=== PATIENT | male | born 1935 | race Caucasian/White ===

== ENCOUNTER 2016-07-19 12:59 | Emergency (ER) | payer MEDICARE, OTHER ==
[2016-07-19 13:15] VITALS: BP 139/41
--- NOTE | 2016-07-19 13:55 | EDM.PDOC ---
[id number] 4d HOT, SWOLLEN, TENDER SPOT ON LT ELBOW Time Seen by Provider: 07/19/16 13:40 Source: Reports: Patient History Limitations: Reports: No limitations - History of Present Illness INITIAL COMMENTS - FREE TEXT/NARRATIVE: 80-year-old male noticed some fluctuance over his left elbow last evening after working in the yard, this morning he felt ill, weak, feverish, and noticed the left arm was more swollen and warm. He now feels much better and the swelling seems to have gone down some but the area is still warm and red. No trauma. Consciousness: Reports: no loss of consciousness Associated Symptoms: Reports: denies other symptoms Allergies/ADRs: Allergies No Known Allergies Allergy (Verified 07/19/16 13:15) Home Medications: Ambulatory Orders Cod Liver Oil 1 each PO DAILY 12/11/12 [Confirmed 07/19/16] Ergotamine Tartrate/Caffeine [Migergot Suppository] 1 supp RECTAL ASDIRECTED PRN 12/11/12 [Confirmed 07/19/16] [place]-3 Fatty Acids [Fish Oil] 1,000 mg PO DAILY 12/11/12 [Confirmed 07/19/16] Ranitidine [Zantac] 75 mg PO BID PRN 12/11/12 [Confirmed 07/19/16] SUMAtriptan [Imitrex] 25 mg PO ASDIRECTED PRN 12/11/12 [Confirmed 07/19/16] ZOLMitriptan [Zomig] 1.25 mg PO DAILY 12/11/12 [Confirmed 07/19/16] Calcium Carbonate/Vitamin D3 [Calcium 600 + Vit D3 Caplet] 1 each PO DAILY 11/06 [Confirmed 07/19/16] Cholecalciferol (Vitamin D3) [Vitamin D3] 5,000 unit PO DAILY 11/06/14 [ Confirmed 07/19/16] Cyanocobalamin (Vitamin B-12) [Vitamin B-12] 100 mcg PO Q7D 11/06/14 [Confirmed 07/19/16] Ferrous Sulfate 325 mg PO Q7D 11/06/14 [Confirmed 07/19/16] Folic Acid 1 mg PO Q7D 11/06/14 [Confirmed 07/19/16] Gluc/Francisco-Msm#1/Vit C/Andrez/Bor [Srmzjdz-Mevgt-PTB Complex Cplt] 1 each PO DAILY 11/06/14 [Confirmed 07/19/16] Loperamide HCl [Loperamide] 2 mg PO BID 11/06/14 [Confirmed 07/19/16] Pantoprazole Sodium [Protonix] 40 mg PO BID 11/06/14 [Confirmed 07/19/16] atorvaSTATin [Lipitor] 40 mg PO BEDTIME 11/06/14 [Confirmed 07/19/16] diphenhydrAMINE HCl [Diphenhydramine HCl] 25 mg PO BEDTIME 11/06/14 [Confirmed 07/19/16] Past Medical History HEENT History: Reports: Hard of hearing, Other (see below) Other HEENT History: sees double out of right eye Cardiovascular History: Reports: Arrhythmia, Pulmonary hypertension, SOB on exertion, Other (see below) Other Cardiovascular History: mitral valve regurgitation, tricuspid regurgitation Respiratory History: Reports: SOB, Other (see below) Other Respiratory History: due to pulmonary hypertension Gastrointestinal History: Reports: Other (see below) Other Gastrointestinal History: bleeding ulcer x2 , microscopic colitis Genitourinary History: Reports: Other (see below) Other Genitourinary History: frequency at night and low volume Neurological History: Reports: Migraines Oncologic (Cancer) History: Reports: Squamous cell carcinoma - Past Surgical History GI Surgical History: Reports: Other (see below) Other GI Surgeries/Procedures: endoscopy to clip bleeding ulcer Social & Family History - Tobacco Use Smoking Status *Q: Never Smoker Second Hand Smoke Exposure: No - Alcohol Use Days Per Week of Alcohol Use: 0 - Recreational Drug Use Recreational Drug Use: No Review of Systems - Review of Systems Review Of Systems: See Below Constitutional: Reports: fever (Thinks he may have been running a fever this morning) Respiratory: Reports: No Symptoms. Denies: Shortness of Breath GI/Abdominal: Denies: Nausea, Vomiting Musculoskeletal: Denies: joint pain Skin: Reports: erythema Trauma Exam - Physical Exam Exam: See Below Exam Limited By: No limitations General Appearance: Reports: alert, no apparent distress Head: Reports: atraumatic Respiratory Exam: Reports: no respiratory distress Extremities: Reports: other (Exam is otherwise limited to the left arm. He has some fluctuance over the olecranon bursa, and some swelling and redness extending into the extensor surface of the forearm. It is warm to touch and is tender.) - Ritu Coma Score Best Eye Response ([place]): (1) no response Course - Vital Signs Last Recorded V/S: Last Vital Signs Temp 97.8 F 07/19/16 13:13 Pulse 103 H 07/19/16 13:13 Resp 15 07/19/16 13:13 BP 139/41 L 07/19/16 13:13 Pulse Ox 93 L 07/19/16 13:13 - Re-Assessments/Exams Free Text/Narrative Re-Assessment/Exam: 07/19/16 13:53 Patient was started on Augmentin 875 twice a day for the next 7 days, encouraged to wrap the arm gently for swelling and recheck in 48-72 hours if not improving. Departure - Departure Time of Disposition: 13:59 Disposition: Home, Self-Care 01 Condition: good Clinical Impression: Olecranon bursitis, left elbow Cellulitis Qualifiers: Site of cellulitis: extremity Site of cellulitis of extremity: upper extremity Laterality: left Qualified Code(s): L03.114 - Cellulitis of left upper limb Instructions: Cellulitis, Adult Referrals: Marito Contreras MD [Primary Care Provider] - Forms: ED Department Discharge Care Plan Goals: Take antibiotic twice daily with food and recheck in 2-3 days if not improving. Wrapping the arm gently will help any further swelling. Activity as tolerated.
== END 2016-07-19 14:00 | disposition home or self-care (01) ==
LOC: JP.ED 12:59
DX: L03.114 Cellulitis of left upper limb (principal); I27.2 Other secondary pulmonary hypertension; Z98.890 Other specified postprocedural states; Z79.899 Other long term (current) drug therapy
CPT/HCPCS: 99283

== ENCOUNTER 2018-05-23 08:07 | Emergency (ER) | payer MEDICARE, OTHER ==
[2018-05-23 08:34] VITALS: BP 138/68
[2018-05-23] MEDS ORDERED: Ketorolac 60 MG/2 ML SDV IM ONE (09:08)
--- NOTE | 2018-05-23 09:14 | EDM.PDOC ---
<Jose AlfredoberonicaRosemary M - Last Filed: 05/23/18 09:16> ED HPI GENERAL MEDICAL PROBLEM - General Chief Complaint: Lower Extremity Injury/Pain Stated Complaint: hip pain Time Seen by Provider: 05/23/18 08:35 Source of Information: Reports: Patient History Limitations: Reports: No Limitations - History of Present Illness Onset: Gradual Onset Date: 05/22/18 Onset Time: 16:30 Location: Reports: Upper Extremity, Left (lateral hip, hip flexor region) Quality: Reports: Stabbing Severity: Moderate Left Hip Pain Score (Numeric/FACES): 8 - Related Data Allergies Allergy/AdvReac Type Severity Reaction Status Date / Time No Known Allergies Allergy Verified 07/19/16 13:15 Home Meds: Home Meds Cod Liver Oil 1 each PO DAILY 12/11/12 [History] Ergotamine Tartrate/Caffeine [Migergot Suppository] 1 supp RECTAL ASDIRECTED PRN 12/11/12 [History] [place]-3 Fatty Acids [Fish Oil] 1,000 mg PO DAILY 12/11/12 [History] ZOLMitriptan [Zomig] 1.25 mg PO DAILY 12/11/12 [History] Calcium Carbonate/Vitamin D3 [Calcium 600 + Vit D3 Caplet] 1 each PO DAILY 11/06 [History] Cholecalciferol (Vitamin D3) [Vitamin D3] 5,000 unit PO DAILY 11/06/14 [History] Cyanocobalamin (Vitamin B-12) [Vitamin B-12] 100 mcg PO Q7D 11/06/14 [History] Ferrous Sulfate 325 mg PO Q7D 11/06/14 [History] Folic Acid 1 mg PO Q7D 11/06/14 [History] Gluc/Francisco-Msm#1/Vit C/Andrez/Bor [Aaqnucy-Zknbi-WSF Complex Cplt] 1 each PO DAILY 11/06/14 [History] Loperamide HCl [Loperamide] 2 mg PO BID 11/06/14 [History] Pantoprazole Sodium [Protonix] 40 mg PO BID 11/06/14 [History] atorvaSTATin [Lipitor] 40 mg PO BEDTIME 11/06/14 [History] diphenhydrAMINE HCl [Diphenhydramine HCl] 25 mg PO BEDTIME 11/06/14 [History] SUMAtriptan [Imitrex] 25 mg PO ASDIRECTED PRN 05/23/18 [History] atorvaSTATin Calcium [Lipitor] 20 mg PO DAILY 05/23/18 [History] Past Medical History HEENT History: Reports: Hard of Hearing, Other (See Below) Other HEENT History: sees double out of right eye Cardiovascular History: Reports: Arrhythmia, Pulmonary Hypertension, SOB on Exertion, Other (See Below) Other Cardiovascular History: mitral valve regurgitation, tricuspid regurgitation Respiratory History: Reports: SOB, Other (See Below) Other Respiratory History: due to pulmonary hypertension Gastrointestinal History: Reports: Other (See Below) Other Gastrointestinal History: bleeding ulcer x2 , microscopic colitis Genitourinary History: Reports: Other (See Below) Other Genitourinary History: frequency at night and low volume Neurological History: Reports: Migraines Oncologic (Cancer) History: Reports: Squamous Cell Carcinoma - Past Surgical History GI Surgical History: Reports: Other (See Below) Social & Family History - Tobacco Use Smoking Status *Q: Never Smoker - Caffeine Use Caffeine Use: Reports: Coffee - Recreational Drug Use Recreational Drug Use: No Review of Systems - Review of Systems Review Of Systems: ROS reveals no pertinent complaints other than HPI. Musculoskeletal: Reports: Joint Pain (left lateral hip at hip flexor region. Denies numbness of tingling to leg, no calf tenderness. Denies falling onto hip while shoveling or sudden twisting movement. Denies feeling popping sensation. ) Skin: Reports: No Symptoms Neurological: Reports: No Symptoms Psychiatric: Reports: No Symptoms ED EXAM, GENERAL - Physical Exam Exam Limited By: No Limitations General Appearance: Alert, WD/WN, No Apparent Distress Ears: Hearing Grossly Normal Head: Atraumatic Neck: Normal Inspection Respiratory/Chest: No Respiratory Distress, Lungs Clear, Normal Breath Sounds Cardiovascular: Normal Peripheral Pulses, Regular Rate, Rhythm, No Edema, No Gallop, No JVD, No Murmur, No Rub Extremities: Other (left lateral hip pain. Straight leg raise does not illicit pain. Normal range of motion of hip joint. Point tenderness at hip flexor insertion area. ) Neurological: Alert, Oriented, Normal Cognition Skin Exam: Warm, Dry, Intact, Normal Color, No Rash Course - Vital Signs Text/Narrative:: Patient presents to ER with complaints of hip pain that began yesterday late afternoon while shoveling snow off his deck. He states it began as a muscle tightness that increased to the point wherein he needed to stop shoveling. He denies any sudden twisting motions that caused the beginning of his pain, yet describes his pain as a gradual onset that became unbearable. He tried nothing for pain, no ice, heat, or OTC pain medications. He did state he took his "normal two tylenol" before going to bed. He states he did sleep OK, but upon waking the pain in his hip brought him in for treatment. Last Recorded V/S: Last Vital Signs Temp 36.1 C 05/23/18 08:36 Pulse 87 05/23/18 08:36 Resp 12 05/23/18 08:36 BP 138/68 05/23/18 08:36 Pulse Ox 95 05/23/18 08:36 - Orders/Labs/Meds Meds: Medications Discontinued Medications Generic Name Dose Route Start Last Admin Trade Name Michelle PRN Reason Stop Dose Admin Ketorolac Tromethamine 60 mg 05/23/18 09:08 05/23/18 09:14 Toradol IM 05/23/18 09:09 60 mg ONETIME ONE Administration Departure - Departure Disposition: Home, Self-Care 01 Clinical Impression: Tendonitis involving left hip abductors - Discharge Information Instructions: Tendinitis Referrals: Marito Contreras MD [Primary Care Provider] - Forms: ED Department Discharge Care Plan Goals: rest, moist warm heat to the left lateral hip area, baclofen 10 mg bid, torodol 10 mg tid, If not getting better see Dr Rand on Thursday to consider a injection of the site. Use the protonix bid while on the torodol. <Winifred Becerra - Last Filed: 05/26/18 01:01> Review of Systems - Review of Systems Review Of Systems: See Below ED EXAM, GENERAL - Physical Exam Exam: See Below Course - Re-Assessments/Exams Free Text/Narrative Re-Assessment/Exam: 05/23/18 09:35 pt will be treated with torodol and baclofen, moist heat and rest. If not better he will see Dr rand on thursday to consider injecting the area. Departure - Departure Time of Disposition: 09:36 Condition: Fair
== END 2018-05-23 09:46 | disposition home or self-care (01) ==
LOC: JP.ED 08:07
DX: M76.892 Other specified enthesopathies of left lower limb, excluding foot (principal); Z79.899 Other long term (current) drug therapy
CPT/HCPCS: 96372; 99283; J1885

== ENCOUNTER 2020-01-28 22:30 | Emergency (ER) | payer MEDICARE, OTHER ==
[2020-01-28 22:42] VITALS: BP 136/90; PULSE 73
--- NOTE | 2020-01-28 22:56 | EDM.PDOC ---
ED HPI GENERAL MEDICAL PROBLEM - General Chief Complaint: General Stated Complaint: LEFT HAND SORES Time Seen by Provider: 01/28/20 22:50 Source of Information: Reports: Patient, RN Notes Reviewed History Limitations: Reports: No Limitations - History of Present Illness INITIAL COMMENTS - FREE TEXT/NARRATIVE: 54-year-old gentleman presents emergency department today with redness over his left hand he states it started as a small mary's igloo this morning but now has encompassed the whole lockstitch back maker and he has some red streaks going up his arm it is warm and tender to the touch he denies any break of skin or fevers Left Hand Pain Score (Numeric/FACES): 4 - Related Data Allergies Allergy/AdvReac Type Severity Reaction Status Date / Time No Known Allergies Allergy Verified 07/19/16 13:15 Home Meds: Home Meds Cod Liver Oil 1 each PO DAILY 12/11/12 [History] Ergotamine Tartrate/Caffeine [Migergot Suppository] 1 supp RECTAL ASDIRECTED PRN 12/11/12 [History] [place]-3 Fatty Acids [Fish Oil] 1,000 mg PO DAILY 12/11/12 [History] ZOLMitriptan [Zomig] 1.25 mg PO DAILY 12/11/12 [History] Calcium Carbonate/Vitamin D3 [Calcium 600 + Vit D3 Caplet] 1 each PO DAILY 11/06/14 [History] Cholecalciferol (Vitamin D3) [Vitamin D3] 5,000 unit PO DAILY 11/06/14 [History] Cyanocobalamin (Vitamin B-12) [Vitamin B-12] 100 mcg PO Q7D 11/06/14 [History] Ferrous Sulfate 325 mg PO Q7D 11/06/14 [History] Folic Acid 1 mg PO Q7D 11/06/14 [History] Glucosam/Chond-Msm1/C/Andrez/Bor [Duyglvn-Vxrxn-QIU Complex Cplt] 1 each PO DAILY 11/06/14 [History] Loperamide HCl [Loperamide] 2 mg PO BID 11/06/14 [History] Pantoprazole Sodium [Protonix] 40 mg PO BID 11/06/14 [History] atorvaSTATin [Lipitor] 40 mg PO BEDTIME 11/06/14 [History] diphenhydrAMINE HCL [Diphenhydramine HCl] 25 mg PO BEDTIME 11/06/14 [History] SUMAtriptan [Imitrex] 25 mg PO ASDIRECTED PRN 05/23/18 [History] atorvaSTATin Calcium [Lipitor] 20 mg PO DAILY 05/23/18 [History] Past Medical History HEENT History: Reports: Hard of Hearing, Other (See Below) Other HEENT History: sees double out of right eye Cardiovascular History: Reports: Arrhythmia, Pulmonary Hypertension, SOB on Exertion, Other (See Below) Other Cardiovascular History: mitral valve regurgitation, tricuspid regurgitation Respiratory History: Reports: SOB, Other (See Below) Other Respiratory History: due to pulmonary hypertension Gastrointestinal History: Reports: Other (See Below) Other Gastrointestinal History: bleeding ulcer x2 , microscopic colitis Genitourinary History: Reports: Other (See Below) Other Genitourinary History: frequency at night and low volume Neurological History: Reports: Migraines Oncologic (Cancer) History: Reports: Squamous Cell Carcinoma - Infectious Disease History Infectious Disease History: Reports: Chicken Pox, Measles, Mumps - Past Surgical History GI Surgical History: Reports: Other (See Below) Social & Family History - Tobacco Use Tobacco Use Status *Q: Never Tobacco User - Caffeine Use Caffeine Use: Reports: Coffee ED ROS GENERAL - Review of Systems Review Of Systems: See Below Constitutional: Reports: No Symptoms Skin: Reports: Pallor, Erythema ED EXAM, GENERAL - Physical Exam Exam: See Below Free Text/Narrative:: Examination left hand radial pulses +2 there is an erythematous patch over the dorsal surface of the hand it is warm to the touch it is tender to touch I do appreciate some slight red streaking going up the arm Exam Limited By: No Limitations General Appearance: Alert, WD/WN, No Apparent Distress Course - Vital Signs Last Recorded V/S: Last Vital Signs Temp 97.9 F 01/28/20 22:41 Pulse 73 01/28/20 22:41 Resp 18 01/28/20 22:41 BP 136/90 01/28/20 22:41 Pulse Ox 96 01/28/20 22:41 Departure - Departure Time of Disposition: 22:55 Disposition: Home, Self-Care 01 Condition: Fair Clinical Impression: Cellulitis of left hand - Discharge Information Instructions: Cellulitis, Adult, [id number] Referrals: Marito Contreras MD [Primary Care Provider] - Additional Instructions: Take full course of antibiotics, please followup with your primary care provider in 3-5 days if not better, please call return to the emergency department with worsening of symptoms. Sepsis Event Note (ED) - Evaluation Sepsis Screening Result: No Definite Risk - Focused Exam Vital Signs: Vital Signs Temp Pulse Resp BP Pulse Ox 01/28/20 22:41 97.9 F 73 18 136/90 96 - Assessment/Plan Plan: Assessment Acuity = acute Site and laterality = cellulitis left hand Etiology = probable bacterial cause Manifestations = none Location of injury = Home Lab values = none Plan Elected to treat empirically Keflex 500 mg 4 times daily x7 days follow-up primary care 3 to 5 days if not better This note was dictated using [employer] voice recognition software please call with any questions on syntax or grammar.
== END 2020-01-28 23:00 | disposition home or self-care (01) ==
LOC: JP.ED 22:30
DX: L03.114 Cellulitis of left upper limb (principal)
CPT/HCPCS: 99283

== ENCOUNTER 2021-01-01 13:32 | Emergency (ER) | payer MEDICARE, OTHER ==
[2021-01-01] MEDS ORDERED: REMDESIVIR 200 MG in Sodium Chloride 0.9% 250 ML IV ONE ×2 (15:10→17:31)
--- NOTE | 2021-01-01 15:17 | EDM.PDOC ---
ED HPI GENERAL MEDICAL PROBLEM - General Chief Complaint: Gastrointestinal Problem Stated Complaint: VOMITING, DIARRHEA Time Seen by Provider: 01/01/21 15:10 Source of Information: Reports: Patient, Family, RN Notes Reviewed History Limitations: Reports: No Limitations - History of Present Illness INITIAL COMMENTS - FREE TEXT/NARRATIVE: 85-year-old gentleman presents the emergency department complaints of nausea vomiting diarrhea and fatigue. He states his symptoms started about 7 to 10 days ago he has been vaccinated with [employer] J[employer] he is not sure of any exposures he has not had fevers he feels more short of breath - Related Data Allergies Allergy/AdvReac Type Severity Reaction Status Date / Time No Known Allergies Allergy Verified 01/01/21 13:48 Home Meds: Home Meds Cod Liver Oil 1 each PO DAILY 12/11/12 [History] Ergotamine Tartrate/Caffeine [Migergot Suppository] 1 supp RECTAL ASDIRECTED PRN 12/11/12 [History] [place]-3 Fatty Acids [Fish Oil] 1,000 mg PO DAILY 12/11/12 [History] ZOLMitriptan [Zomig] 1.25 mg PO DAILY 12/11/12 [History] Calcium Carbonate/Vitamin D3 [Calcium 600 + Vit D3 Caplet] 1 each PO DAILY 11/06/14 [History] Cholecalciferol (Vitamin D3) [Vitamin D3] 5,000 unit PO DAILY 11/06/14 [History] Cyanocobalamin (Vitamin B-12) [Vitamin B-12] 100 mcg PO Q7D 11/06/14 [History] Ferrous Sulfate 325 mg PO Q7D 11/06/14 [History] Folic Acid 1 mg PO Q7D 11/06/14 [History] Glucosam/Chond-Msm1/C/Andrez/Bor [Owiznzd-Uyxaw-OAO Complex Cplt] 1 each PO DAILY 11/06/14 [History] Loperamide HCl [Loperamide] 2 mg PO BID 11/06/14 [History] Pantoprazole Sodium [Protonix] 40 mg PO BID 11/06/14 [History] atorvaSTATin [Lipitor] 40 mg PO BEDTIME 11/06/14 [History] diphenhydrAMINE HCL [Diphenhydramine HCl] 25 mg PO BEDTIME 11/06/14 [History] SUMAtriptan [Imitrex] 25 mg PO ASDIRECTED PRN 05/23/18 [History] atorvaSTATin Calcium [Lipitor] 20 mg PO DAILY 05/23/18 [History] Past Medical History HEENT History: Reports: Hard of Hearing, Other (See Below) Other HEENT History: sees double out of right eye Cardiovascular History: Reports: Arrhythmia, Pulmonary Hypertension, SOB on Exertion, Other (See Below) Other Cardiovascular History: mitral valve regurgitation, tricuspid regurgitation Respiratory History: Reports: SOB, Other (See Below) Other Respiratory History: due to pulmonary hypertension Gastrointestinal History: Reports: Other (See Below) Other Gastrointestinal History: bleeding ulcer x2 , microscopic colitis Genitourinary History: Reports: Other (See Below) Other Genitourinary History: frequency at night and low volume Neurological History: Reports: Migraines Oncologic (Cancer) History: Reports: Squamous Cell Carcinoma - Infectious Disease History Infectious Disease History: Reports: Chicken Pox, Measles, Mumps - Past Surgical History GI Surgical History: Reports: Other (See Below) Other GI Surgeries/Procedures: endoscopy to clip bleeding ulcer Social & Family History - Tobacco Use Tobacco Use Status *Q: Never Tobacco User - Caffeine Use Caffeine Use: Reports: Coffee - Recreational Drug Use Recreational Drug Use: No ED ROS GENERAL - Review of Systems Review Of Systems: See Below Constitutional: Reports: Malaise, Weakness, Fatigue HEENT: Reports: No Symptoms Respiratory: Reports: Shortness of Breath Cardiovascular: Reports: No Symptoms GI/Abdominal: Reports: Diarrhea, Nausea, Vomiting ED EXAM, GENERAL - Physical Exam Exam: See Below Exam Limited By: No Limitations General Appearance: Alert, WD/WN, No Apparent Distress Respiratory/Chest: No Respiratory Distress, Lungs Clear, Normal Breath Sounds, No Accessory Muscle Use, Chest Non-Tender Cardiovascular: Regular Rate, Rhythm, No Murmur GI/Abdominal: Soft, Non-Tender Course - Vital Signs Last Recorded V/S: Last Vital Signs Temp 98.1 F 01/01/21 13:51 Pulse 93 01/01/21 15:35 Resp 16 01/01/21 15:35 BP 113/53 L 01/01/21 15:35 Pulse Ox 92 L 01/01/21 15:35 - Orders/Labs/Meds Orders: Active Orders 24 hr Category Date Time Status Nurse Communication: Isolation [RC] ASDIRECTED Care 01/01/21 15:11 Active Positioning, Patient [RC] ASDIRECTED Care 01/01/21 15:10 Active HEPATIC FUNCTION PANEL,HFP [CHEM] DAILY Lab 01/02/21 15:15 Ordered HEPATIC FUNCTION PANEL,HFP [CHEM] DAILY Lab 01/03/21 15:15 Ordered HEPATIC FUNCTION PANEL,HFP [CHEM] DAILY Lab 01/04/21 15:15 Ordered HEPATIC FUNCTION PANEL,HFP [CHEM] DAILY Lab 01/05/21 15:15 Ordered Acetaminophen [TylenoL] Med 01/01/21 17:00 Active 650 mg PO ONETIME PRN Acetaminophen [TylenoL] Med 01/01/21 15:10 Active 650 mg PO Q4H PRN Casirivimab/Imdevimab [Regen-Cov 600-600 mg/10Ml (Eua)] Med 01/01/21 17:00 Active 10 ml Sodium Chloride 0.9% [Normal Saline] 150 ml IV ONETIME EPINEPHrine [Adrenalin] Med 01/01/21 17:00 Active 0.3 mg IM ONETIME PRN Famotidine [Pepcid] Med 01/01/21 17:00 Active 20 mg IV ONETIME PRN dexAMETHasone [Decadron] Med 01/01/21 15:15 Active 6 mg IVPUSH DAILY diphenhydrAMINE [Benadryl] Med 01/01/21 17:00 Active 50 mg IVPUSH ONETIME PRN methylPREDNISolone Sod Succ [Solu-MEDROL] Med 01/01/21 17:00 Active 125 mg IVPUSH ONETIME PRN Isolation [COMM] Stat Oth 01/01/21 15:10 Ordered Medication Orders Acetaminophen (Acetaminophen 325 Mg Tab) 650 mg PO Q4H PRN PRN Reason: Fever Greater Than 101 Last Admin: 01/01/21 15:37 Dose: 650 mg Documented by: AUBREY Acetaminophen (Acetaminophen 325 Mg Tab) 650 mg PO ONETIME PRN PRN Reason: HEADACHE,CHILLS Stop: 01/01/21 22:00 Dexamethasone (Dexamethasone 4 Mg/Ml Sdv) 6 mg IVPUSH DAILY RAKESH Stop: 01/10/21 09:01 Last Admin: 01/01/21 15:37 Dose: 6 mg Documented by: AUBREY Diphenhydramine HCl (Diphenhydramine 50 Mg/Ml Sdv) 50 mg IVPUSH ONETIME PRN PRN Reason: ALLERGIC RXN Stop: 01/01/21 22:00 Epinephrine HCl (Epinephrine 1 Mg/Ml Sdv) 0.3 mg IM ONETIME PRN PRN Reason: ALLERGIC RXN Stop: 01/01/21 22:00 Famotidine (Famotidine 20 Mg/2 Ml Sdv) 20 mg IV ONETIME PRN PRN Reason: ALLERGIC RXN Stop: 01/01/21 22:00 CASIRIVIMAB/IMDEVIMAB 10 ml/ (Sodium Chloride) 160 mls @ 310 mls/hr IV ONETIME ONE Stop: 01/01/21 17:30 Methylprednisolone Sodium Succinate (Methylprednisolone Sodium Succinate 125 Mg/2 Ml Sdv) 125 mg IVPUSH ONETIME PRN PRN Reason: ALLERGIC RXN Stop: 01/01/21 22:00 Labs: Laboratory Tests 01/01/21 01/01/21 01/01/21 Range/Units 14:02 15:36 15:36 WBC 3.4 L (4.5-11.0) K/uL RBC 4.00 L (4.30-5.90) M/uL Hgb 12.8 (12.0-15.0) g/dL Hct 39.3 L (40.0-54.0) % MCV 98 (80-98) fL MCH 32 H (27-31) pg MCHC 33 (32-36) % Plt Count 126 L (150-400) K/uL Neut % (Auto) 61.0 (36-66) % Lymph % (Auto) 27.0 (24-44) % Luce % (Auto) 11.7 H (2-6) % Eos % (Auto) 0.0 L (2-4) % Baso % (Auto) 0.3 (0-1) % Sodium 139 L (140-148) mmol/L Potassium 4.1 (3.6-5.2) mmol/L Chloride 102 (100-108) mmol/L Carbon Dioxide 26 (21-32) mmol/L Anion Gap 15.1 H (5.0-14.0) mmol/L BUN 16 (7-18) mg/dL Creatinine 0.9 (0.8-1.3) mg/dL Est Cr Clr Drug Dosing 41.58 mL/min Estimated GFR (MDRD) > 60 (>60) Glucose 102 (74-106) mg/dL Lactic Acid (0.4-2.0) mmol/L Calcium 8.0 L (8.5-10.1) mg/dL Total Bilirubin 0.2 (0.2-1.0) mg/dL Direct Bilirubin 0.09 (0.0-0.2) mg/dL Indirect Bilirubin TNP AST 40 H (15-37) U/L ALT 29 (12-78) U/L Alkaline Phosphatase 48 (46-116) U/L C-Reactive Protein 4.33 H (0.0-0.3) mg/dL Total Protein 6.0 L (6.4-8.2) g/dL Albumin 2.8 L (3.4-5.0) g/dL Globulin 3.2 (2.3-3.5) g/dL Albumin/Globulin Ratio 0.9 L (1.2-2.2) Procalcitonin ng/mL SARS-CoV-2 RNA (FRANNIE) Positive H (NEGATIVE) 01/01/21 01/01/21 Range/Units 15:36 15:36 WBC (4.5-11.0) K/uL RBC (4.30-5.90) M/uL Hgb (12.0-15.0) g/dL Hct (40.0-54.0) % MCV (80-98) fL MCH (27-31) pg MCHC (32-36) % Plt Count (150-400) K/uL Neut % (Auto) (36-66) % Lymph % (Auto) (24-44) % Luce % (Auto) (2-6) % Eos % (Auto) (2-4) % Baso % (Auto) (0-1) % Sodium (140-148) mmol/L Potassium (3.6-5.2) mmol/L Chloride (100-108) mmol/L Carbon Dioxide (21-32) mmol/L Anion Gap (5.0-14.0) mmol/L BUN (7-18) mg/dL Creatinine (0.8-1.3) mg/dL Est Cr Clr Drug Dosing mL/min Estimated GFR (MDRD) (>60) Glucose (74-106) mg/dL Lactic Acid 1.1 (0.4-2.0) mmol/L Calcium (8.5-10.1) mg/dL Total Bilirubin (0.2-1.0) mg/dL Direct Bilirubin (0.0-0.2) mg/dL Indirect Bilirubin AST (15-37) U/L ALT (12-78) U/L Alkaline Phosphatase (46-116) U/L C-Reactive Protein (0.0-0.3) mg/dL Total Protein (6.4-8.2) g/dL Albumin (3.4-5.0) g/dL Globulin (2.3-3.5) g/dL Albumin/Globulin Ratio (1.2-2.2) Procalcitonin 0.20 ng/mL SARS-CoV-2 RNA (FRANNIE) (NEGATIVE) Meds: Medications Generic Name Dose Route Start Last Admin Trade Name Freq PRN Reason Stop Dose Admin Acetaminophen 650 mg 01/01/21 15:10 01/01/21 15:37 Acetaminophen 325 Mg Tab PO 650 mg Q4H PRN Administration Fever Greater Than 101 Acetaminophen 650 mg 01/01/21 17:00 Acetaminophen 325 Mg Tab PO 01/01/21 22:00 ONETIME PRN HEADACHE,CHILLS Dexamethasone 6 mg 01/01/21 15:15 01/01/21 15:37 Dexamethasone 4 Mg/Ml Sdv IVPUSH 01/10/21 09:01 6 mg DAILY RAKESH Administration Diphenhydramine HCl 50 mg 01/01/21 17:00 Diphenhydramine 50 Mg/Ml Sdv IVPUSH 01/01/21 22:00 ONETIME PRN ALLERGIC RXN Epinephrine HCl 0.3 mg 01/01/21 17:00 Epinephrine 1 Mg/Ml Sdv IM 01/01/21 22:00 ONETIME PRN ALLERGIC RXN Famotidine 20 mg 01/01/21 17:00 Famotidine 20 Mg/2 Ml Sdv IV 01/01/21 22:00 ONETIME PRN ALLERGIC RXN CASIRIVIMAB/IMDEVIMAB 10 ml/ 160 mls @ 310 mls/hr 01/01/21 17:00 Sodium Chloride IV 01/01/21 17:30 ONETIME ONE Methylprednisolone Sodium Succinate 125 mg 01/01/21 17:00 Methylprednisolone Sodium Succinate 125 Mg/2 Ml Sdv IVPUSH 01/01/21 22:00 ONETIME PRN ALLERGIC RXN Departure - Departure Time of Disposition: 16:57 Disposition: Home, Self-Care 01 Condition: Fair Clinical Impression: COVID-19 - Discharge Information Instructions: What You Should Know About COVID-19 to Protect Yourself and Others - CDC, 10 Things You Can Do to Manage Your COVID-19 Symptoms at Home - [facility] [place][NOTE 3] (10/12/2020) Referrals: PCP,None [Primary Care Provider] - Forms: ED Department Discharge Additional Instructions: Please return to the emergency department worsening of symptoms, follow-up with your primary care in 7 to 10 days if not better Sepsis Event Note (ED) - Evaluation Sepsis Screening Result: No Definite Risk - Focused Exam Vital Signs: Vital Signs Temp Pulse Resp BP Pulse Ox 01/01/21 15:35 93 16 113/53 L 92 L 01/01/21 15:28 87 102/49 L 96 01/01/21 14:54 93 L 01/01/21 14:40 88 L 01/01/21 13:51 98.1 F 96 16 120/54 L 91 L 01/01/21 13:47 98.1 F 96 16 120/54 L 91 L - My Orders Last 24 Hours: My Active Orders 01/01/21 15:10 Positioning, Patient [RC] ASDIRECTED Acetaminophen [TylenoL] 650 mg PO Q4H PRN Isolation [COMM] Stat 01/01/21 15:11 Nurse Communication: Isolation [RC] ASDIRECTED 01/01/21 15:15 dexAMETHasone [Decadron] 6 mg IVPUSH DAILY 01/01/21 17:00 Acetaminophen [TylenoL] 650 mg PO ONETIME PRN Casirivimab/Imdevimab [Regen-Cov 600-600 mg/10Ml (Eua)] 10 ml Sodium Chloride 0.9% [Normal Saline] 150 ml IV ONETIME EPINEPHrine [Adrenalin] 0.3 mg IM ONETIME PRN Famotidine [Pepcid] 20 mg IV ONETIME PRN diphenhydrAMINE [Benadryl] 50 mg IVPUSH ONETIME PRN methylPREDNISolone Sod Succ [Solu-MEDROL] 125 mg IVPUSH ONETIME PRN 01/02/21 15:15 HEPATIC FUNCTION PANEL,HFP [CHEM] DAILY 01/03/21 15:15 HEPATIC FUNCTION PANEL,HFP [CHEM] DAILY 01/04/21 15:15 HEPATIC FUNCTION PANEL,HFP [CHEM] DAILY 01/05/21 15:15 HEPATIC FUNCTION PANEL,HFP [CHEM] DAILY - Assessment/Plan Last 24 Hours: My Active Orders 01/01/21 15:10 Positioning, Patient [RC] ASDIRECTED Acetaminophen [TylenoL] 650 mg PO Q4H PRN Isolation [COMM] Stat 01/01/21 15:11 Nurse Communication: Isolation [RC] ASDIRECTED 01/01/21 15:15 dexAMETHasone [Decadron] 6 mg IVPUSH DAILY 01/01/21 17:00 Acetaminophen [TylenoL] 650 mg PO ONETIME PRN Casirivimab/Imdevimab [Regen-Cov 600-600 mg/10Ml (Eua)] 10 ml Sodium Chloride 0.9% [Normal Saline] 150 ml IV ONETIME EPINEPHrine [Adrenalin] 0.3 mg IM ONETIME PRN Famotidine [Pepcid] 20 mg IV ONETIME PRN diphenhydrAMINE [Benadryl] 50 mg IVPUSH ONETIME PRN methylPREDNISolone Sod Succ [Solu-MEDROL] 125 mg IVPUSH ONETIME PRN 01/02/21 15:15 HEPATIC FUNCTION PANEL,HFP [CHEM] DAILY 01/03/21 15:15 HEPATIC FUNCTION PANEL,HFP [CHEM] DAILY 01/04/21 15:15 HEPATIC FUNCTION PANEL,HFP [CHEM] DAILY 01/05/21 15:15 HEPATIC FUNCTION PANEL,HFP [CHEM] DAILY Plan: Assessment Acuity = acute Site and laterality = viral syndrome Etiology = COVID-19 Manifestations = borderline hypoxia Location of injury = Home Lab values = WBC low at 3.4 consistent leukopenia, lactic acid normal 1.1, CRP elevated 4.3, CMP unremarkable, procalcitonin slightly changed to 0.2 chest x- ray shows no acute process Plan Because this gentleman has been borderline hypoxia between 91-88 depending on his position, at rest he maintains 90 degrees with her saturation this gentleman would warrant hospitalization however no beds are available at this time therefore going to try monoclonal antibody therapy now he will go home and if symptoms become worse he will return to the ed This note was dictated using [employer] voice recognition software please call with any questions on syntax or grammar.
[2021-01-01] MEDS: Dexamethasone 4 MG/ML SDV IVPUSH SCH (15:37)
[2021-01-01] MEDS: Acetaminophen 325 MG Tab PO PRN (15:37)
--- NOTE | 2021-01-01 16:08 | CRLCR ---
For Patients: As a result of the Century Cures Act, medical imaging exams and procedure reports are released immediately into your electronic medical record. You may view this report before your referring provider. If you have questions, please contact your health care provider. INDICATION: respiratory failure TECHNIQUE: Chest 1 view. COMPARISON: None. FINDINGS: Cardiovascular and mediastinum: Heart size and vasculature are normal in caliber and appearance. Mediastinum is within normal limits. Lungs and pleural space: Lungs are clear. No sign of infiltrate or mass. No sign of pleural effusion. No pneumothorax. Bones and soft tissues: No significant findings. IMPRESSION: Unremarkable chest. Dictated by: Minesh Catalan MD @ 01/01/2021 16:07:10 (Electronically Signed)
[2021-01-01] MEDS ORDERED: diphenhydrAMINE 50 MG/ML SDV IVPUSH PRN ×2 (17:00)
[2021-01-01] MEDS ORDERED: Famotidine 20 MG/2 ML SDV IV PRN ×2 (17:00)
[2021-01-01] MEDS ORDERED: Acetaminophen 325 MG Tab PO PRN ×2 (17:00)
[2021-01-01] MEDS ORDERED: methylPREDNISolone Sodium Succinate 125 MG/2 ML SDV IVPUSH PRN ×2 (17:00)
[2021-01-01] MEDS ORDERED: EPINEPHrine 1 MG/ML SDV IM PRN ×2 (17:00)
[2021-01-01] MEDS: CASIRIVIMAB/IMDEVIMAB 10 ML in Sodium Chloride 0.9% 150 ML IV ONE (17:16)
[2021-01-01] MEDS: REMDESIVIR 200 MG in Sodium Chloride 0.9% 250 ML IV ONE (18:20)
[2021-01-01 20:25] VITALS: BP 113/69; PULSE 79
== END 2021-01-01 20:30 ==
LOC: JP.ED 13:32
DX: U07.1 COVID-19 (principal); I10 Essential (primary) hypertension; Z79.899 Other long term (current) drug therapy
CPT/HCPCS: 36415; 71045; 80048; 80076; 83605; 84145; 85025; 86140; 99284; A9270; J1100; J7050; M0243; Q0243; U0002